=== PATIENT | female | born 1975 | race Caucasian/White ===

== ENCOUNTER 2025-07-26 17:31 | Emergency (ER) | payer OTHER, SELFPAY ==
[2025-07-26 17:36] VITALS: BP 137/82
--- NOTE | 2025-07-26 19:01 | ED.GENMED ---
History of Present Illness
General
Chief Complaint: Abdominal Pain
Source: patient and significant other
Time Seen by Provider: 07/26/25 18:45
History of Present Illness
History of Present Illness:
This patient is a 50-year-old female who just returned from [place] today after being there for 2 weeks. She was feeling her usual self until Monday evening when she said her entire abdomen started to 'bother me'. She cannot be more specific than
that. Since that time, she has multiple episodes of diarrhea and for the first time here in the emergency department noticed a small amount of blood in it. She denies fever, chills, vomiting but has felt nauseous. She denies vaginal discharge or
bleeding, chest pain. She denies sick contacts or recent antibiotics. She notes discomfort initially in the upper abdomen described as 'stabbing' that seemed worse after eating but now has migrated down to the lower abdomen. This is without
exacerbating relieving factors otherwise. She denies urinary symptoms.
Past History
Past History
ED Past Medical History: Psychiatric
ED Past Surgical History: Gynecological
Social History
Tobacco: Non-smoker
Alcohol: Occasional
Drug: None
Living: other
Phy Exam
Physical Exam
Physical Exam:
GENERAL: Alert , in no apparent distress
EYE: pupils equal and reactive
NECK: Supple, no significant adenopathy.
ENT: o/p clr, mm dry
CARDIAC: Regular rate and rhythm .
LUNGS: Clear breath sounds bilaterally, no acute respiratory distress, no wheezes/rales/rhonchi
ABDOMEN: Soft, diffuse abdominal tenderness, no r/g, no cvat
NEUROLOGICAL: Alert and oriented, no focal neuro deficits
SKIN: Warm and dry, skin intact.
MUSCULOSKELETAL: No edema, well perfused.
PSYCH: Normal and appropriate interaction.
Course
Orders/Labs/Results
Orders:
Orders
07/26/25 18:57
Cardiac Monitoring- Treatment ONCE
0.9% Sodium Chloride 1000 ml [Nss] 1,000 ml IV BOLUS
Iohexol [Omnipaque] See Protocol PO NOW STA
07/26/25 18:58
Electrocardiogram (*1) Stat
Reason for Study: Abdominal Pain
CT Abd/pel W Iv And Oral Contr Urgent
Comment:
Reason For Exam: diarrhea, travel, abd pain
EKG- Treatment ONCE
Test Result ONCE
07/26/25 19:25
Complete Blood Count/No Diff Urgent
Comprehensive Metabolic Panel Urgent
HCG, Serum Qualitative Screen Urgent
Lipase Urgent
Urinalysis Reflex To Culture Urgent
Date Specimen was Collected: 07/26/25
Time Specimen was Collected: 19:18
Urine Microscopic Reflex Cult Urgent
C difficile Antigen & Toxins Urgent
REHANA Source: ST
Specimen Description:
Date Specimen was Collected: 07/26/25
Time Specimen was Collected: 19:18
Stool Culture Urgent
REHANA Source: Feces/Stool
Specimen Description:
Date Specimen was Collected: 07/26/25
Time Specimen was Collected: 19:18
07/26/25 23:09
Ketorolac [Toradol] 15 mg IV NOW STA
MetroNIDAZOLE 500 MG/100 ML [Flagyl 500 mg] 100 ml IV NOW
07/26/25 23:18
Add On - Microbiology Routine
Tests Added?: c-diff
07/26/25 23:20
Ciprofloxacin 400 mg/[id number] [Cipro 400 mg] 200 ml IV NOW
07/26/25 23:28
Ciprofloxacin HCl [Cipro] 500 mg PO NOW STA
MetroNIDAZOLE [Flagyl] 500 mg PO NOW STA
Abnormal Lab Results
07/26/25
19:25
WBC 16.3 H 10^3/uL
(4.8-10.8)
RBC 4.14 L 10^6/uL
(4.20-5.40)
MCH 32.1 H pg
(27.0-31.0)
Sodium 132 L mmol/L
(135-145)
Glucose 126 H mg/dl
(70-99)
Urine Ketones 2+ A
(Negative)
Urine Albumin (Reflex) 1+ A
(Neg - Trace)
07/26/25 19:25
07/26/25 19:25
Vital Signs
Initial and Last Documented VS:
Initial Vital Signs
Temp Pulse Resp BP Pulse Ox
97.8 F 110 16 137/82 98
07/26/25 17:36 07/26/25 17:36 07/26/25 17:36 07/26/25 17:36 07/26/25 17:36
Last Documented Vital Signs
Temp Pulse Resp BP Pulse Ox
97.8 F 99 14 134/84 99
07/26/25 17:36 07/26/25 23:29 07/26/25 23:29 07/26/25 23:29 07/26/25 22:20
*Pulse Oximetry
SaO2: 98
Oxygen Mode of Delivery: Room air
Patient hypoxic: no
*Critical Care Note
Total Time (30-74mins, 75-104mins- exclusive of procedures): Not Applicable
Update Note
Update Note:
Patient presents to the Emergency Department with abdominal pain and diarrhea
Number and Complexity of Problems Addressed at the Encounter
� Chronic conditions affecting care:
� Acute Exacerbation and/or Progression of Chronic Illness:
� Differential Diagnosis includes: But not limited to infectious colitis, C. difficile, appendicitis, cholecystitis, etc. etc.
Amount and/or Complexity of Data to be Reviewed and Analyzed
� I performed an independent evaluation of and my interpretation is:
EKG:
CT: Vision read moderate wall thickening of the colon diffusely from cecum to sigmoid colon with pericolonic fat stranding reflecting nonspecific intense pancolitis includes. Small amount of free fluid in the bilateral lower
quadrants of the pelvis no bowel obstruction abscess or free air normal appendix right lower quadrant remainder of the abdominal organs without acute abnormality incidental duplicated left renal collecting system decompressed bladder
Xrays:
Laboratory Studies: Leukocytosis noted
Other:
� Review of other/old records reveals:
� Clinical information was obtained by an independent historian:
� Prescriptions/Medications Considered but not given:
� Further testing considered but not performed:
Risk of Complications and/or Morbidity or Mortality of Patient Management
� Social determinants of health affecting care:
� Discussion with other providers (PCP, Hospitalists, Consultants, etc):
� Escalation of care including admission/observation vs risk of discharge considered: 11:11 PM repeat examination, abdomen soft with diffuse mild to palpation, no rebound or guarding. Patient tolerated oral contrast without
difficulty. Long discussion with patient and significant other regarding stay overnight in hospital under observation versus go home, they prefer to go home but understands very closely importance of follow-up and reasons return the emergency
department.
ED Attending Note
-
Portions of this chart may have been created with voice recognition software.� Occasional wrong word or��sound alike� substitutions may have occurred due to the inherent limitations of voice recognition software.
Discharge Plan
Departure
Patient Disposition: Home (Routine Discharge)
Date of Disposition: 07/26/25
Time of Disposition: 23:29
Patient with high blood pressure during this ER visit?: Yes
Condition: Good
Discharge Problem:
Colitis
Instructions: Colitis (DC), BLOOD PRESSURE
Prescriptions:
New
ciprofloxacin HCl [Cipro] 500 mg tablet
500 mg PO BID Qty: 14 0RF
metronidazole 500 mg tablet
500 mg PO Q8H 7 Days Qty: 21 0RF
No Action
bupropion HCl 150 mg Tablet Sustained-Release 12 Hr
150 mg PO DAILY
Referrals:
Nette Cedillo MD [Active, Gastroenterology] - Next open appointment
Kimber Patterson DO [Family Provider, Family Practice]
Activity Restrictions/Additional Instructions:
IF YOU DEVELOP INCREASING/PERSISTENT/NEW PAIN, FEVER, BLEEDING, VOMITING, DIZZINESS, OR OTHER WORRISOME SIGNS, GO TO THE ER IMMEDIATELY!
Interventions
Interventions:
*Risk Screen - Suicide Last Done: 07/26/25 19:54
*General Assessment Last Done: 07/26/25 19:53
*Neglect/Abuse Screening Last Done: 07/26/25 19:54
*ED- Fall Risk Assessment Last Done: 07/26/25 23:20
*Nursing Disposition Last Done: 07/26/25 23:43
FD-Bemwiz-Zayngudrgc Assessment Last Done: 07/26/25 23:29
Discharge Date and Time
Discharge Date/Time: 07/26/25 23:43
Print Language: [place]
[2025-07-26 19:34] LABS: Hematocrit 38.6 % (37.0-47.0); Hemoglobin 13.3 g/dL (12.0-16.0); Mean Corp Hgb Conc. 34.5 g/dL (33.0-37.0); Mean Corpuscular Volume 93.2 fL (81.0-99.0); Platelet Count 338 10^3/uL (130-400); Red Cell Dist. Width 11.6 % (11.5-14.5)
[2025-07-26] MEDS: OMNIPAQUE 50 ML PO (19:38)
[2025-07-26] MEDS: NSS 1000 IV (19:39)
[2025-07-26 19:46] LABS: HCG, Serum Qualitative Screen Negative
[2025-07-26 19:56] LABS: ALT (SGPT) 13 U/L (0-35); AST (SGOT) 16 U/L (14-36); Albumin 3.7 g/dl (3.5-5.0); Alkaline Phosphatase 95 U/L (38-126); Blood Urea Nitrogen 13 mg/dl (7-17); Calcium 8.8 mg/dl (8.4-10.2); Carbon Dioxide 24 mmol/L (22-30); Chloride 102 mmol/L (98-107); Glucose 126 mg/dl (70-99); Lipase 47 U/L (23-300); Potassium 4.3 mmol/L (3.5-5.1); Sodium 132 mmol/L (135-145); Total Protein 6.5 g/dl (6.3-8.2); eGFR > 60.00
[2025-07-26 22:20] VITALS: BP 120/68
[2025-07-26 22:31] LABS: Urine Character Clear (Clear)
[2025-07-26 22:45] LABS: Urine Squamous Cell >30 /LPF (Few)
[2025-07-26 22:48] LABS: Urine Red Blood Cell 0-2 /HPF (0-2)
[2025-07-26 23:16] VITALS: BMI 24.0
[2025-07-26] MEDS: TORADOL 15 MG IV (23:27)
[2025-07-26 23:29] VITALS: BP 134/84
[2025-07-26] MEDS: FLAGYL 500 MG PO (23:39)
[2025-07-26] MEDS: CIPRO 500 MG PO (23:39)
== END 2025-07-26 23:43 | disposition home or self-care (01) ==
LOC: EMR 17:31
PROVIDERS: EMERGENCY PHYSICIAN Emergency Medicine; FAMILY PHYSICIAN Family Medicine
DX: K52.9 Noninfective gastroenteritis and colitis, unspecified (principal)
CPT/HCPCS: 99284; 96374; 96361; 74177; 80053; 81003; 81015; 83690; 84703; 85027; 87045; 87046; 87324; 87427; 87449; 93005; Q9967

== ENCOUNTER 2025-07-27 23:31 | Inpatient (IN) | payer OTHER, SELFPAY ==
[2025-07-27 21:39] VITALS: BP 135/87
--- NOTE | 2025-07-27 22:22 | ED.GENMED ---
History of Present Illness
General
Chief Complaint: Abdominal Symptoms
Source: patient and significant other
Time Seen by Provider: 07/27/25 22:00
History of Present Illness
History of Present Illness:
This patient is a 50-year-old female who I saw in the emergency department approximately 24 hours ago, at that time complaints of abdominal pain and diarrhea, diagnosed with colitis. At that time, patient elected to go home with outpatient
treatment and close follow-up. She was prescribed Cipro and Flagyl, and began Imodium at home. She states she tolerated the morning antibiotics but has had repeated episodes of nonbloody vomiting since then associated with now passing bright red
blood per rectum. She notes persistent mild to moderate abdominal that gets worse just before she has a bowel movement. Otherwise no exacerbating relieving factors, no radiation, no chest pain, shortness of breath, fever, chills, or other
complaints.
Past History
Past History
ED Past Medical History: Psychiatric
ED Past Surgical History: Gynecological
Social History
Tobacco: Non-smoker
Alcohol: Occasional
Drug: None
Living: other
Phy Exam
Physical Exam
Physical Exam:
GENERAL: Alert , in no apparent distress
EYE: pupils equal and reactive
NECK: Supple, no significant adenopathy.
ENT: o/p clr, mm slightly dry
CARDIAC: Regular rate and rhythm .
LUNGS: Clear breath sounds bilaterally, no acute respiratory distress, no wheezes/rales/rhonchi
ABDOMEN: Soft, diffuse mild tenderness, no r/g, no cvat
NEUROLOGICAL: Alert and oriented, no focal neuro deficits
SKIN: Warm and dry, skin intact.
MUSCULOSKELETAL: No edema, well perfused.
PSYCH: Normal and appropriate interaction.
Course
Orders/Labs/Results
Orders:
Orders
07/27/25 22:20
0.9% Sodium Chloride 1000 ml [Nss] 1,000 ml IV BOLUS
Ciprofloxacin 400 mg/[id number] [Cipro 400 mg] 200 ml IV NOW
MetroNIDAZOLE 500 MG/100 ML [Flagyl 500 mg] 100 ml IV NOW
Morphine Sulfate 4 mg IV NOW STA
Ondansetron Injectable [Zofran] 4 mg IV NOW STA
07/27/25 22:24
Complete Blood Count/No Diff Urgent
Comprehensive Metabolic Panel Urgent
Lactic Acid Urgent
07/27/25 22:33
Vancomycin HCl [Firvanq] 500 mg PO NOW STA
07/27/25 23:23
Admit/Transfer Patient As Directed
Co-Sign Provider:
Level of Care: Inpatient admission
Assign to:: Medical/Surgical
Physician / Group: yung
Diagnosis: cdif
Reason for Hospitalization: cdif
Expected length of stay greater than two midnights?: Yes
ELOS- Estimated Length of Stay in days: 2
I certify the patient meets the requirements for IP care: Yes
Code Status As Directed
Resuscitation Status: Full Code
PRN Pain Medication Management As Directed
May give lesser potent ordered pain med per pt: Yes
preference::
Protocol:: Medication orders for pain may be administered in a
manner that supports deferring to patient preference
when the pt is:
- Requesting an ordered lesser potent pain medication.
Least to most potent pain medications are defined
as: acetaminophen < NSAID < tramadol < opioids
(morphine, oxycodone, hydromorphone).
- Requesting a lesser dose of the same medication IF
ORDERED.
- Requesting a less intrusive route of administration
if both routes are prescribed by the provider (PO <
IV).
Abnormal Lab Results
07/27/25
22:24
WBC 11.9 H 10^3/uL
(4.8-10.8)
RBC 3.92 L 10^6/uL
(4.20-5.40)
Hct 36.7 L %
(37.0-47.0)
MCH 31.9 H pg
(27.0-31.0)
Sodium 131 L mmol/L
(135-145)
Carbon Dioxide 18 L mmol/L
(22-30)
Glucose 105 H mg/dl
(70-99)
Total Protein 6.0 L g/dl
(6.3-8.2)
07/27/25 22:24
07/27/25 22:24
Vital Signs
Initial and Last Documented VS:
Initial Vital Signs
Temp Pulse Resp BP Pulse Ox
97.7 F 95 18 135/87 99
07/27/25 21:39 07/27/25 21:39 07/27/25 21:39 07/27/25 21:39 07/27/25 21:39
Last Documented Vital Signs
Temp Pulse Resp BP Pulse Ox
97.7 F 89 16 120/74 98
07/27/25 21:39 07/27/25 23:42 07/27/25 23:42 07/27/25 23:42 07/27/25 23:42
*Pulse Oximetry
SaO2: 99
Oxygen Mode of Delivery: Room air
Patient hypoxic: no
*Critical Care Note
Total Time (30-74mins, 75-104mins- exclusive of procedures): Not Applicable
Update Note
Update Note:
Patient presents to the Emergency Department with ___abdominal pain, nausea, vomiting, bloody
Number and Complexity of Problems Addressed at the Encounter
� Chronic conditions affecting care:
� Acute Exacerbation and/or Progression of Chronic Illness:
� Differential Diagnosis includes: But not limited to infectious colitis, ischemic colitis, C. difficile, etc. etc.
Amount and/or Complexity of Data to be Reviewed and Analyzed
� I performed an independent evaluation of and my interpretation is:
EKG:
CT:
Xrays:
Laboratory Studies: Generally unchanged, lactic within normal limits.
Other:
� Review of other/old records reveals:
� Clinical information was obtained by an independent historian: Significant other who is at bedside
� Prescriptions/Medications Considered but not given:
� Further testing considered but not performed:
Risk of Complications and/or Morbidity or Mortality of Patient Management
� Social determinants of health affecting care:
� Discussion with other providers (PCP, Hospitalists, Consultants, etc):
� Escalation of care including admission/observation vs risk of discharge considered: I informed both patient and significant other regarding her C. difficile results, revision of treatment, recommendation for hospitalization.
Case discussed with hospitalist. Patient is not critically ill, no hypotension, abdomen without rebound or guarding, etc.
ED Attending Note
-
Portions of this chart may have been created with voice recognition software.� Occasional wrong word or��sound alike� substitutions may have occurred due to the inherent limitations of voice recognition software.
Discharge Plan
Departure
Patient Disposition: Admit
Date of Disposition: 07/27/25
Time of Disposition: 23:10
Presentation/result/management discussed w/ accepting MD/DO: Hospitalist
Discharge Problem:
C. difficile colitis
Interventions
Interventions:
*Risk Screen - Suicide Last Done: 07/27/25 21:39
*General Assessment Last Done: 07/27/25 21:39
*Neglect/Abuse Screening Last Done: 07/27/25 21:39
*ED- Fall Risk Assessment Last Done: 07/27/25 22:28
*ED COVID-19 Vaccine History Last Done: 07/27/25 22:28
*ED Influenza Vaccine History Last Done: 07/27/25 22:28
JU-Utzkmg-Shubzvpqts Assessment Last Done: 07/27/25 22:59
[2025-07-27 22:27] VITALS: BMI 21.1
[2025-07-27] MEDS: NSS 1000 IV (22:27)
[2025-07-27] MEDS: ZOFRAN 4 MG IV (22:30)
[2025-07-27] MEDS: MORPHINE SULFATE 4 MG IV (22:30)
[2025-07-27 22:35] LABS: Hematocrit 36.7 % (37.0-47.0); Hemoglobin 12.5 g/dL (12.0-16.0); Mean Corp Hgb Conc. 34.1 g/dL (33.0-37.0); Mean Corpuscular Volume 93.6 fL (81.0-99.0); Platelet Count 316 10^3/uL (130-400); Red Cell Dist. Width 11.5 % (11.5-14.5)
[2025-07-27 22:57] LABS: ALT (SGPT) 12 U/L (0-35); AST (SGOT) 16 U/L (14-36); Albumin 3.5 g/dl (3.5-5.0); Alkaline Phosphatase 77 U/L (38-126); Blood Urea Nitrogen 7 mg/dl (7-17); Calcium 8.7 mg/dl (8.4-10.2); Carbon Dioxide 18 mmol/L (22-30); Chloride 103 mmol/L (98-107); Estimated Creatinine Clearance 65 ml/min; Glucose 105 mg/dl (70-99); Potassium 4.2 mmol/L (3.5-5.1); Sodium 131 mmol/L (135-145); Total Protein 6.0 g/dl (6.3-8.2); eGFR > 60.00
--- NOTE | 2025-07-27 23:17 | HPS.HSE ---
Family Physician
-
Family Physician: Kimber Patterson, DO
Chief Complaint
-
watery bloody diarrhea x 1week
History of Present Illness
50-year-old female who had recent trip to [place] while they are 1 week into her trip she started with watery diarrhea.
She came to the ER yesterday complaining of abdominal pain with diarrhea. she had CT showing colitis at that time patient elected to go home she was prescribed Cipro and Flagyl and began Imodium at home. She reports she had vomiting and had
bright red blood per rectum her stool culture overnight was positive for C. difficile. She denies fever, chills, chest pain, palpitations, shortness of breath, cough, urinary symptoms. She denies any recent antibiotics, colitis, Crohn's, IBS, sick
contacts. She has past medical history of depression
Medical History
Past Medical History
Past Medical History: Reports Other (Depression)
Past Surgical History: Reports Other (Tubal ligation)
Social History
Tobacco: Non-smoker
Alcohol: Occasional
Personal:
Living: With Family ()
Employment: Employed
Family History
Family History: Other (No family history of Crohn's, C. difficile, IBS)
Allergies / Home Medications
Allergies reflects when Allergies were last updated in [employer].
Home Medications with original date entered in [employer]
Allergy/Medication List:
Allergies
Allergy/AdvReac Type Severity Reaction Status Date / Time
No Known Allergies Allergy Verified 07/26/25 17:38
Home Medications
bupropion HCl 150 mg tablet,12 hr sustained-release 150 mg PO DAILY 07/26/25
ciprofloxacin HCl 500 mg tablet (Cipro) 500 mg PO BID #14 tabs 07/26/25
metronidazole 500 mg tablet 500 mg PO Q8H 7 days #21 tabs 07/26/25
Review of Systems
-
History Source: Patient and Family ( at bedside)
A 12 point ROS was completed and negative except as noted: Yes
Constitutional: Denies Fever or Chills
EENT: Denies Sore Throat
Respiratory: Denies Cough or Trouble Breathing
Cardiac: Denies Chest Pain, Diaphoresis or Palpitations
Abdomen/GI: Reports Abdominal Pain (Generalized), Nausea, Vomiting, Diarrhea (Watery, and bloody) and Bloody Stools
: Denies Dysuria, Frequency, Flank Pain, Incontinence or Dark Urine
Musculoskeletal: Denies Joint Pain or Muscle Pain
Skin: Denies Itching or Rash
Neurological: Denies Dizzy, Headache or Weakness
Endocrine: Reports No Symptoms
Hematologic/Lymphatic: Reports No Symptoms
Psych: Reports Calm
Physical Exam
Vital Signs
Vital Signs
Temp Pulse Resp BP Pulse Ox
97.7 F 95 18 135/87 99
07/27/25 21:39 07/27/25 21:39 07/27/25 21:39 07/27/25 21:39 07/27/25 22:26
Physical Exam
General: Conversant; No Fever or Chills
HEENT: NormoCephalic, Anicteric, Moist mucous membranes, PERRLA, [place] Conjunctivae and No Ptosis
Respiratory: Clear; No Wheezes, Rales or Rhonchi
Cardiac: S1/S2 and Regular Rhythm; No Murmur, Rub, Gallop or Peripheral Edema
Breast: Deferred by me
GI: Soft, Non Distended, Normal Bowel Sounds, Tender (generalized) and No Hepatosplenomegaly
Genito-urinary: Deferred by me
Musculoskeletal: No Clubbing, No Cyanosis and No Edema
Skin: Warm and Dry; No Rash or Jaundice
Neuro: AO x 3, No Motor Deficits, Nonfocal/grossly intact, Cranial Nerves Intact and No Sensory Deficits; No Slurred Speech, Facial Droop, Tremors or Sedated
Psych: Calm
Laboratory Results
-
07/27/25 22:24
07/27/25 22:24
Laboratory Results
Lactic Acid 0.8 mmol/L (0.7-2.0) 07/27/25 22:24
Total Bilirubin 0.7 mg/dl (0.2-1.3) 07/27/25 22:24
AST 16 U/L (14-36) 07/27/25 22:24
ALT 12 U/L (0-35) 07/27/25 22:24
Alkaline Phosphatase 77 U/L (38-126) 07/27/25 22:24
Data Reviewed
-
CT Scan: Report Reviewed by me
Lab Data: Labs Reviewed by me
Impression/Plan
-
Impression/plan:
Admit to [facility]
#C. difficile colitis
WBC 11.9, afebrile 97.7
Stool culture 07/26/2025 C. difficile positive
Patient started on vancomycin 500 mg p.o. in ER
Continue oral vancomycin 125 every 6 hours
- N.p.o.
- IV NSS
- IV Zofran
- Follow CBC, CMP
CT abdomen pelvis IV and oral contrast 07/26/2025
Nonspecific advanced pancolitis with relative sparing of the distal sigmoid colon and rectum. This may be infectious or
inflammatory in nature. No evidence of pneumatosis. No free air. Trace free fluid in the pelvis. No focal collection or abscess.
No bowel obstruction.
#Depression
Continue Wellbutrin
DVT prophylaxis
SCDs
Full code
--- NOTE | 2025-07-27 23:32 | W.PN.UPDATE ---
Update Note
Progress Note Update
This is an addendum to the H&P written by Beti Treadwell on 07/27/2025. �Patient seen and examined independently with DRAPERY AND UPHOLSTERY ESTIMATOR.
50-year-old female past medical history of depression presenting with abdominal pain and diarrhea. �She came to the emergency room yesterday after recent trip to [place] with diarrhea with small amount of blood in it for 1 week. �No fevers or chills.
�Nausea without vomiting. �No sick contacts. �She was discharged on ciprofloxacin and Flagyl.
She came back to the emergency room today for persistent nonbloody vomiting now passing bright red blood per rectum. �Stool culture from yesterday shows toxigenic C. difficile positive.
Vital signs normal.
Labs show leukocytosis. �Sodium of 131. �Bicarb of 18. �CT abdomen pelvis from yesterday shows nonspecific advanced pancolitis with relative sparing of the distal sigmoid colon and rectum.
Patient with C. difficile colitis. �N.p.o., IV fluids, p.o. vancomycin. Stool culture still pending.
[2025-07-27] MEDS: FLAGYL 500 MG 100 IV (23:39)
[2025-07-27 23:42] VITALS: BP 120/74
[2025-07-27] MEDS: FIRVANQ 500 MG PO (23:57)
[2025-07-28 01:29] VITALS: BP 108/67
[2025-07-28 01:47] VITALS: BP 113/71; BMI 20.3
[2025-07-28] MEDS: DILAUDID 0.5 MG IV ×3 (02:02→12:49)
[2025-07-28] MEDS: FIRVANQ 125 MG PO ×5 (02:03→23:32)
[2025-07-28] MEDS: NSS 1000 IV (02:04)
--- NOTE | 2025-07-28 03:07 | PTCARENOTE ---
Pt arrived to unit from ED on stretcher at 0132. Pt ambulated to bed without assist; gait steady. Pt complains of abd pain that was aggravated with ambulation-See DEC. IVF started. Pt reports no BM since being in hospital. Q6 Firvanq given-See MAR.
Pt made aware on plan of care and is agreeable to it at this time. Bed in lowest position and locked, call monae within reach, pt states no further needs at this time.
[2025-07-28 07:25] VITALS: BP 115/72
[2025-07-28] MEDS: WELLBUTRIN SR (12 hour sustained release) 150 MG PO (08:07)
[2025-07-28] MEDS: ZOFRAN 4 MG IV (08:11)
[2025-07-28 08:32] LABS: Hematocrit 36.6 % (37.0-47.0); Hemoglobin 12.3 g/dL (12.0-16.0); Mean Corp Hgb Conc. 33.6 g/dL (33.0-37.0); Mean Corpuscular Volume 97.1 fL (81.0-99.0); Nucleated Red Blood Cells % 0 %; Platelet Count 352 10^3/uL (130-400); Red Cell Dist. Width 11.4 % (11.5-14.5)
[2025-07-28 08:38] LABS: ALT (SGPT) < 10 U/L (0-35); AST (SGOT) 16 U/L (14-36); Albumin 2.9 g/dl (3.5-5.0); Alkaline Phosphatase 61 U/L (38-126); Blood Urea Nitrogen 5 mg/dl (7-17); Calcium 8.0 mg/dl (8.4-10.2); Carbon Dioxide 15 mmol/L (22-30); Chloride 109 mmol/L (98-107); Estimated Creatinine Clearance 74 ml/min; Glucose 62 mg/dl (70-99); Potassium 4.5 mmol/L (3.5-5.1); Sodium 132 mmol/L (135-145); Total Protein 5.1 g/dl (6.3-8.2); eGFR > 60.00
[2025-07-28] MEDS: D5/0.9% SODIUM CHLORIDE 1000 IV (11:16)
--- NOTE | 2025-07-28 11:29 | CM ---
Reviewed the chart notes and spoke with the patient and her significant other at the bedside. The patient resides with her significant other in a two story home with three steps to enter. The patient reports no DME/VN/SNF in the past. The patient
confirmed her pharmacy of choice is [facility]. CM continues to be available to patient/family and is monitoring medical plan for needs at discharge.
Plan: Discharge to home when medically stable. No needs anticipated at this time.
[2025-07-28] MEDS: D5/0.45%NACL 1000 IV (12:48)
--- NOTE | 2025-07-28 12:59 | W.PN.UPDATE ---
Update Note
Progress Note Update
Sepsis secondary to C. difficile colitis
Oral antibiotics with vancomycin
C. difficile colitis without evidence of fulminant C. difficile
Currently n.p.o.
Will start clear liquid diet
IV fluids
Antiemetics
P.o. vancomycin 125 mg every 6 x 10 days
Maintain Iso precautions
Hyponatremia
Encourage p.o. intake
Metabolic acidosis�none anion gap
Likely secondary to diarrhea and likely hyperchloremia from NS bolus
Expect to improve
Encourage p.o. Intake
I saw and evaluated the patient and reviewed notes.��
I agree with the history, physical exam and medical decision making with the following additions/exceptions/observations
--- NOTE | 2025-07-28 13:05 | CON.GI ---
Addendum entered and electronically signed by Nette Cedillo MD 07/28/25 15:06:
The patient was seen and examined by me independently in collaboration with the nurse practitioner.
Past medical history/social history/medications/allergies/family history reviewed.
Lab data and imaging data reviewed.
50-year-old female no significant past medical history presenting with diarrhea followed by abdominal pain followed by rectal bleeding with nausea and vomiting, no fevers or chills found to have C. difficile and E. coli with positive Shiga toxin.
CT with pancolitis sparing sigmoid and rectum. Labs significant for white blood cell count 13.2 yesterday down to 10.9, hemoglobin 11.3, albumin 2.9. Having ongoing abdominal pain. Will get obstructive series to ensure no megacolon with ongoing
pain. Some improvement from diarrhea previously having 'innumerable' stools yesterday, 5 today. Since some improvement will continue vanco but will also get ID input. Also + shiga toxin E. coli recommendation typically to avoid abx risk of HUS.
Original Note:
Consultation
-
Date/Time Consultation Requested: 07/28/25 1250
Date/Time Consultation Performed: 07/28/25 1305
Requesting Provider: Camila Pate MD
Performing Provider: LEONARDO Kinney, Lashawn Cedillo MD
Reason for Consultation: abdominal pain, bleeding, C-diff and Ecoli positive
Medical History
Chief Complaint / HPI
Chief Complaint: abdominal pain with bleeding
History of Present Illness:
Pt is a 50yo with hx tubal ligation and depression with recent trip to [place] for 2 weeks. She states she began with diarrhea in middle of trip. She considered going to urgent care in [place] but held and returned 07/26 from trip. On return pain
increased and she began with rectal bleeding. She was in ER 07/26 and discharged then returned 07/27 with worsening pain. Since admission pain with some improvement with pain meds but still passing blood stools. Ct completed first visit with
advanced pancolitis with sparing of distal sigmoid and rectum.
Pt denies any GI issue prior to trip. No prior EGD or colonoscopy in past and no chronic GI issues. She current admits to continued diarrhea with about 4 stools today that were all blood. She admits to 6/10 abdominal pain with prior pain
08/01 last 2 days. She also admits to nausea, decreased appetite and bloating. She denies dysphagia, GERD, vomiting, or constipation.
Past Medical History
Past Medical History: Psychiatric (depression)
Past Surgical History: Gynecological (tubal ligation)
Social History
Tobacco: Non-Smoker
Alcohol: Occasional
Drug: None
Personal: Other (boyfriend )
Living: Other (boyfriend )
Employment: Employed
Family History
Family History: Reviewed & Not Pertinent
Allergies / Home Medications
Allergy/AdvReac Type Severity Reaction Status Date / Time
No Known Allergies Allergy Verified 07/26/25 17:38
�Medication �Instructions �Recorded
bupropion HCl 150 mg tablet,12 hr 150 mg PO DAILY 07/26/25
sustained-release
ciprofloxacin HCl 500 mg tablet 500 mg PO BID #14 tabs 07/26/25
(Cipro)
metronidazole 500 mg tablet 500 mg PO Q8H 7 days #21 tabs 07/26/25
Review of Systems
-
History Source: Patient
Constitutional: Reports No Symptoms
EENT: Reports No Symptoms
Respiratory: Reports No Symptoms
Abdomen/GI: Reports Abdominal Pain, Nausea, Diarrhea and Bloody Stools
: Reports No Symptoms
Musculoskeletal: Reports No Symptoms
Skin: Reports No Symptoms
Neurological: Reports No Symptoms
Endocrine: Reports No Symptoms
Hematologic/Lymphatic: Reports Bleeding
Vital Signs
Temp Pulse Resp BP Pulse Ox
98.7 F 96 16 115/72 100
07/28/25 07:25 07/28/25 07:25 07/28/25 07:25 07/28/25 07:25 07/28/25 09:48
Physical Exam
Exam
General: Well Developed, Well Nourished and No Apparent Distress
HEENT: Normocephalic
Respiratory: Clear
Cardiac: Regular Rhythm
GI: Soft, Tender (mild diffuse ) and Distended (mild )
Musculoskeletal: No Clubbing and No Cyanosis
Skin: Warm and Dry
Neuro: Awake, Alert and AO x 3
Psych: Calm
Results
WBC 13.2 10^3/uL (4.8-10.8) H 07/28/25 07:52
Hgb 12.3 g/dL (12.0-16.0) 07/28/25 07:52
Hct 36.6 % (37.0-47.0) L 07/28/25 07:52
MCV 97.1 fL (81.0-99.0) 07/28/25 07:52
Plt Count 352 10^3/uL (130-400) 07/28/25 07:52
Absolute Neuts (auto) 11.4 10^3/uL (1.4-6.5) H 07/28/25 07:52
Sodium 132 mmol/L (135-145) L 07/28/25 07:52
Potassium 4.5 mmol/L (3.5-5.1) 07/28/25 07:52
Chloride 109 mmol/L (98-107) H 07/28/25 07:52
Carbon Dioxide 15 mmol/L (22-30) L 07/28/25 07:52
BUN 5 mg/dl (7-17) L 07/28/25 07:52
Creatinine 0.7 mg/dL (0.6-1.0) 07/28/25 07:52
Calcium 8.0 mg/dl (8.4-10.2) L 07/28/25 07:52
Total Bilirubin 0.4 mg/dl (0.2-1.3) 07/28/25 07:52
AST 16 U/L (14-36) 07/28/25 07:52
ALT < 10 U/L (0-35) 07/28/25 07:52
Alkaline Phosphatase 61 U/L (38-126) 07/28/25 07:52
Diagnostic Image Results:
07/26/25 CT Abd/pel W Iv And Oral Contr
Nonspecific advanced pancolitis with relative sparing of the distal sigmoid colon and rectum. This may be infectious or inflammatory in nature. No evidence of pneumatosis. No free air. Trace free fluid in the pelvis. No focal collection or abscess.
No bowel obstruction.
The examination was performed after-hours on an emergency basis, with initial preliminary interpretation provided by [facility].
Prior GI Procedures:
EGD: none
Colonoscopy: none
Assessment / Plan
-
Pt is a 50yo with hx tubal ligation and depression with recent trip to [place] for 2 weeks. She states she began with diarrhea in middle of trip. She considered going to urgent care in [place] but held and returned 07/26 from trip. On return pain
increased and she began with rectal bleeding. She was in ER 07/26 and discharged then returned 07/27 with worsening pain. Since admission pain with some improvement with pain meds but still passing blood stools. Ct completed first visit with
advanced pancolitis with sparing of distal sigmoid and rectum.
-diarrhea with rectal bleeding + ecoli and + c-diff
-CT with pancolitis
-recent travel to [place]
-leukocytosis
-hyponatremia
PLAN:
etiology of pancolitis with concern for concurrent E coli and C-diff
agree with ID evaluation for antibiotic course currently on oral Vanco
CT as noted
monitor clinical exams -if increased pain consider repeat CT
trend labs with close watch of CBC and renal function for HUS
monitor all stools and volume
ok to continue SQ heparin for now
trend hbg
OP follow up with GI after improved to consider eventual colonoscopy
message sent to review with hospitalist and resident team
-
-
Thank you for consultation and allowing me to participate in the patient's care. Please call the extension [facility] GI physician during the after hours with any questions or concerns.
--- NOTE | 2025-07-28 13:34 | W.PN.HOSP.TC ---
Today's Communication/Plan
-
started on IV fluids DS 5% and 0.45% NS
started clear liquids today
ID consult
GI consult
updated the Dilaudid to 0.5mg Q4HR to Q3H
discontinue Zofran and start Compazine for nausea
repeat CMP and CBC today PM
Assessment / Plan
Assessment / Plan
Pt is a 50yo with hx tubal ligation and depression with recent trip to [place] for 2 weeks. She states she began with diarrhea in middle of trip. She considered going to urgent care in [place] but held and returned 07/26 from trip. On return pain
increased and she began with rectal bleeding. She was in ER 07/26 and discharged then returned 07/27 with worsening pain. Since admission pain with some improvement with pain meds but still passing blood stools. Ct completed first visit with
advanced pancolitis with sparing of distal sigmoid and rectum.
#Sepsis secondary to C. difficile colitis and Shiga toxin E. Coli
- Bloody stool
- IV fluids
- Vancomycin PO 125 mg every 6 x 10 days
- Ct with pancolitis sparing of distal sigmoid and rectum.
- Antiemetics
- Started clear liquids diet
- Maintain Iso precautions
- ID and GI consulted (if symptoms worse planned to repeat CT scan)
- Monitor closely KFT for HUS
- repeat CMP and CBC today PM
- monitor all stools and volume
- OP follow up with GI after improved to consider eventual colonoscopy
#Abdominal pain
- likely due to C. Diff , E. Coli pancolitis
- Pain meds
#Metabolic acidosis
- Likely secondary to diarrhea and NS bolus (hyperchloremic)
- none anion gap
- repeated cmp today PM
- will start IV Dextro 5# and 1/2 NS
#Hyponatremia
- likely secondary to dehydration from diarrhea and poor oral intake
- started on clear liquid today
- will started IV Dextro 5# and 1/2 NS
#leukocytosis
secondary to C. diff and E.coli telegenic shiga toxin
DVT-- SC Heparin
Code -- Full status
Anticipated Discharge: > 48 hours
Subjective/Interval History
-
Date of Service: July 28, 2025
Patient has sever abdominal pain with pure GI bleeding per rectum (ketchup like color stool) and nausea . denied chest pain , SOB, fever, chills. She denies dysphagia, GERD, vomiting, or constipation.
Objective Data
-
Labs:
Laboratory Results
07/28/25 07/28/25 07/28/25
07:52 13:25 13:26
WBC 13.2 H Pending
Hgb 12.3 Pending
Hct 36.6 L Pending
Plt Count 352 Pending
Sodium 132 L Pending
Potassium 4.5 Pending
Chloride 109 H Pending
Carbon Dioxide 15 L Pending
BUN 5 L Pending
Creatinine 0.7 Pending
Glucose 62 L Pending
Calcium 8.0 L Pending
Total Bilirubin 0.4 Pending
AST 16 Pending
ALT < 10 Pending
Alkaline Phosphatase 61 Pending
Vital Signs:
Vital Signs
Temp Pulse Resp BP Pulse Ox
98.7 F 96 16 115/72 100
07/28/25 07:25 07/28/25 07:25 07/28/25 07:25 07/28/25 07:25 07/28/25 09:48
I&O
07/27/25 07/28/25 07/29/25
06:59 06:59 06:59
Intake Total 312 / 312
Balance 312 / 312
Review of Systems
-
History Source: Patient
Constitutional: Reports No Appetite and Weakness
Respiratory: Reports No Symptoms
Cardiac: Reports No Symptoms
Abdomen/GI: Reports Abdominal Pain, Nausea and Bloated
Genitourinary: Reports No Symptoms
Musculoskeletal: Reports No Symptoms
Skin: Reports No Symptoms
Neuro: Reports No Symptoms
Physical Exam
-
General: Other (tired)
HEENT: Normocephalic and Atraumatic
Respiratory: Clear to Auscultation
Cardiac: Regular Rhythm and S1/S2
GI: Tender and Distended
Rectal: Red
Genito-urinary: Clear Urine
Musculoskeletal: No Clubbing, No Cyanosis and No Edema
Skin: Warm and Dry
Neuro: Awake, Alert and Oriented
[2025-07-28] MEDS: COMPAZINE 5 MG IV (13:45)
[2025-07-28 14:40] LABS: Hematocrit 34.0 % (37.0-47.0); Hemoglobin 11.3 g/dL (12.0-16.0); Mean Corp Hgb Conc. 33.2 g/dL (33.0-37.0); Mean Corpuscular Volume 94.2 fL (81.0-99.0); Nucleated Red Blood Cells % 0 %; Platelet Count 313 10^3/uL (130-400); Red Cell Dist. Width 11.4 % (11.5-14.5)
[2025-07-28 15:15] VITALS: BP 129/75
[2025-07-28 15:29] LABS: ALT (SGPT) < 10 U/L (0-35); AST (SGOT) 14 U/L (14-36); Albumin 2.6 g/dl (3.5-5.0); Alkaline Phosphatase 64 U/L (38-126); Blood Urea Nitrogen 4 mg/dl (7-17); Calcium 7.5 mg/dl (8.4-10.2); Carbon Dioxide 18 mmol/L (22-30); Chloride 106 mmol/L (98-107); Estimated Creatinine Clearance 74 ml/min; Glucose 131 mg/dl (70-99); Potassium 4.4 mmol/L (3.5-5.1); Sodium 129 mmol/L (135-145); Total Protein 4.8 g/dl (6.3-8.2); eGFR > 60.00
--- NOTE | 2025-07-28 16:23 | W.PN.UPDATE ---
Update Note
Progress Note Update
I reviewed Xray
Bowel looks dilated
Recommend STOP narcotics risk of megacolon
recommend non narcotic non nsaid control of pain
sent msg to hospitalist team
will repeat xray tomorrow
[2025-07-28 23:18] VITALS: BP 130/77
[2025-07-29] MEDS: D5/0.45%NACL 1000 IV (01:16)
[2025-07-29] MEDS: FIRVANQ 125 MG PO ×2 (05:06→11:12)
[2025-07-29 06:37] LABS: Hematocrit 33.9 % (37.0-47.0); Hemoglobin 11.7 g/dL (12.0-16.0); Mean Corp Hgb Conc. 34.5 g/dL (33.0-37.0); Mean Corpuscular Volume 93.9 fL (81.0-99.0); Nucleated Red Blood Cells % 0 %; Platelet Count 330 10^3/uL (130-400); Red Cell Dist. Width 11.5 % (11.5-14.5)
[2025-07-29 06:53] LABS: ALT (SGPT) < 10 U/L (0-35); AST (SGOT) 13 U/L (14-36); Albumin 2.5 g/dl (3.5-5.0); Alkaline Phosphatase 66 U/L (38-126); Blood Urea Nitrogen < 2 mg/dl (7-17); Calcium 7.8 mg/dl (8.4-10.2); Carbon Dioxide 24 mmol/L (22-30); Chloride 107 mmol/L (98-107); Estimated Creatinine Clearance 74 ml/min; Glucose 134 mg/dl (70-99); Potassium 4.0 mmol/L (3.5-5.1); Sodium 133 mmol/L (135-145); Total Protein 4.7 g/dl (6.3-8.2); eGFR > 60.00
[2025-07-29 07:00] VITALS: BP 124/78
[2025-07-29] MEDS: WELLBUTRIN SR (12 hour sustained release) 150 MG PO (08:20)
--- NOTE | 2025-07-29 09:04 | CON.ID ---
Consultation
-
Date/Time Consultation Requested: July 28, 2025 1249
Date/Time Consultation Performed: July 29, 2025 0900
Requesting Provider: Dr. Camila Pate
Performing Provider: Dr. Fouzia Iyer
Reason for Consultation: C. difficile with GI bleeding and severe abdominal pain
Chief Complaint / Past History
Chief Complaint
Bloody diarrhea, abd pain
History of Present Illness
50-year-old female without significant past medical history who returned to the ER on May 27 due to severe abdominal pain, bloody diarrhea, nausea and vomiting. She and her boyfriend recently traveled to [place] for 2 weeks. A week into the
vacation, she started having watery diarrhea without fevers. She took 1 dose of Imodium without improvement. Her abdominal pain became severe for which she went to an urgent care in [place] July 23. No one spoke [place] in the urgent care.
Patient therefore preferred to wait until she comes back to the [place] to seek treatment. She flew back July 26 without incident. By then she noted bloody diarrhea after she landed. She presented to the ER the same day. CT of the abdomen pelvis
showed advanced pancolitis. White count 16.3. No fever. Stool sent for C. difficile and culture. She received ciprofloxacin and metronidazole in the ER and discharged with prescription for the same. She took the antibiotics but develop nausea
and vomiting. She continued to have severe abdominal pain and bloody diarrhea. She presented back to the ER on May 27. Her white count has improved to 11.9. The October for stool was positive for C. difficile. She was started on oral
vancomycin. Subsequently, the stool culture came back positive for Shiga toxin producing E. coli. She remains on oral vancomycin. Today she reports significant improvement. The stool is no longer bloody. Diarrhea resolving. Abdominal pain also
resolving without need for narcotic. No prior history of antibiotic use. Her boyfriend is well without symptoms.
Past History
Additional Past Medical History:
Depression
Additional Past Surgical History:
Tubal ligation
Allergy History:
No Known Allergies Allergy (Verified 07/26/25 17:38)
Medications Reviewed: Yes
Current Antibiotics:
Vancomycin 125 mg po q6h
Social History
Tobacco: Non-Smoker
Alcohol: Occasional
Drug: None
Personal: Partner (Boyfriend)
Living: Other (boyfriend)
Family History
Family History: Not Pertinent
Review of Systems
Review of Systems
General: Change in Appetite; Negative Fever
HEENT: Negative Sinus Problems or Headache
Cardiovascular: Negative Chest Pain or Dyspnea
Respiratory: Negative Dyspnea or Cough
Genital / Urological: Negative Dysuria or Flank Pain
Endocrine: Weakness
Neurological: Negative Dizziness
All systems: All other systems were reviewed and were negative
Vital Signs
Temp Pulse Resp BP Pulse Ox
98.2 F 95 20 124/78 98
07/29/25 07:00 07/29/25 07:00 07/29/25 07:00 07/29/25 07:00 07/29/25 07:00
Physical Exam
Physical Exam
Constitutional: No Acute Distress and Comfortable
Eyes: No Conjunctival Hemorrhage and Sclera Anicteric
Cardiovascular: Regular Rate and S1/S2
Pulmonary: Clear
Gastrointestinal: Soft, Non Tender and Non Distended
Genito-Urinary: Negative CVA Tenderness
Extremities: Negative Edema
Neurological: AO x 3
Lab / Diagnostic Study Results
07/29/25 05:45
07/29/25 05:45
Abs Immat Gran (auto) 0.1 10^3/uL (0-0.05) H 07/29/25 05:45
Absolute Neuts (auto) 6.8 10^3/uL (1.4-6.5) H 07/29/25 05:45
Absolute Lymphs (auto) 0.6 10^3/uL (1.2-3.4) L 07/29/25 05:45
Absolute Monos (auto) 0.7 10^3/uL (0.1-0.6) H 07/29/25 05:45
Absolute Basos (auto) 0.1 10^3/uL (0-0.2) 07/29/25 05:45
Immature Gran % 0.6 % (0-0.5) H 07/29/25 05:45
Neutrophils % 80.3 % (42.2-75.2) H 07/29/25 05:45
Lymphocytes % 7.6 % (20.5-51.1) L 07/29/25 05:45
Monocytes % 8.4 % (1.7-9.3) 07/29/25 05:45
Eosinophils % 2.5 % (0-6) 07/29/25 05:45
Basophils % 0.6 % (0-2) 07/29/25 05:45
Lactic Acid 0.8 mmol/L (0.7-2.0) 07/27/25 22:24
Microbiology Results
07/26/25 CT a/p: Nonspecific advanced pancolitis with relative sparing of the distal sigmoid colon and rectum. This may be infectious or inflammatory in nature. No evidence of pneumatosis. No free air. Trace free fluid in the pelvis. No focal
collection or abscess. No bowel obstruction.
07/28/25 CXR/AXR: No acute disease of the chest. No evidence of intestinal obstruction.
Assessment / Plan
# STEC gastroenteritis
# Return traveller from [place]
# Leukocytosis resolved
- bloody diarrhea and abdominal pain resolving
- Tx is supportive care.
- Avoid systemic abx which can trigger HUS.
# C. difficile +
- No previous abx exposure
- Suspect colonization over active infection
- Can complete 10days of empiric Vancomycin 125mg po q6.
--- NOTE | 2025-07-29 11:00 | CM ---
Reviewed the chart notes. CM continues to be available to patient/family and is monitoring medical plan for needs at discharge.
Plan: Discharge to home when medically stable. No needs anticipated at this time.
--- NOTE | 2025-07-29 12:02 | W.PN.GI.CBS2 ---
Today's Communication / Plan
-
vanco 10 days
outpatient colonoscopy
will have our office call her for f/u
will sign off call with questions
Assessment / Plan
-
Pt is a 50yo with hx tubal ligation and depression with recent trip to [place] for 2 weeks.
-diarrhea with rectal bleeding + ecoli and + c-diff
-CT with pancolitis
-recent travel to [place]
-leukocytosis
-hyponatremia
PLAN:
start lactose free diet
continue vanco for 10 days (ID also has seen pt)
needs eventual outpatient colonoscopy electively
Subjective
Subjective
Date of Service: July 29, 2025
Pt feeling much better, no abd pain
Objective
Data Reviewed
Laboratory Data:
Laboratory Results
07/29/25 05:45
07/29/25 05:45
Laboratory Results
Total Bilirubin 0.3 mg/dl (0.2-1.3) 07/29/25 05:45
AST 13 U/L (14-36) L 07/29/25 05:45
ALT < 10 U/L (0-35) 07/29/25 05:45
Alkaline Phosphatase 66 U/L (38-126) 07/29/25 05:45
Vital Signs and I&O:
Vital Signs
Temp Pulse Resp BP Pulse Ox
98.2 F 95 20 124/78 98
07/29/25 07:00 07/29/25 07:00 07/29/25 07:00 07/29/25 07:00 07/29/25 09:23
I&O
07/28/25 07/29/25 07/30/25
06:59 06:59 06:59
Intake Total 312 / 312 2603 / 2603
Output Total 50 / 50
Balance 312 / 312 2553 / 2553
Physical Exam
Physical Exam
GI: Soft, Non Distended and Non Tender
--- NOTE | 2025-07-29 12:46 | W.PN.UPDATE ---
Update Note
Progress Note Update
Sepsis secondary to C. difficile colitis
Oral antibiotics with vancomycin
C. difficile colitis without evidence of fulminant C. difficile
Currently n.p.o.
Will start clear liquid diet
IV fluids
Antiemetics
P.o. vancomycin 125 mg every 6 x 10 days
Maintain Iso precautions
ETEC
No systemic atb. can cause HUS
Bloody bm and abd pain resolved
Normocytic anemia
Likely related to acute infection with CDiff and EColi Shiga toxin
Noted to have bloody BM, now resolved
Did not require PRBC
GI rec outpatient C-scope
Hyponatremia
Encourage p.o. intake
Metabolic acidosis�none anion gap
Likely secondary to diarrhea and likely hyperchloremia from NS bolus
Expect to improve
Encourage p.o. Intake
Wants to go home. Will advance diet. If able to tolerate DC home
I saw and evaluated the patient and reviewed notes.��
I agree with the history, physical exam and medical decision making with the following additions/exceptions/observations
[2025-07-29 15:00] VITALS: BP 134/83
--- NOTE | 2025-07-29 15:17 | W.PN.HOSP.TC ---
Addendum entered and electronically signed by Jorge Cr MD 07/30/25 17:16:
See update note
Read, reviewed, and agree. See same day progress note for additional details. Time spent reviewing records in EMR, med rec, consults, notes, d/w consultants, nursing, family, and CM
Original Note:
Today's Communication/Plan
-
Abdominal X-ray - no bowel obstruction or acute abnormalities
Started on low residue diet and tolerating
discontinued IV fluids
dishcarged today in stable condition
Assessment / Plan
Assessment / Plan
Pt is a 50yo with hx tubal ligation and depression with recent trip to [place] for 2 weeks. She states she began with diarrhea in middle of trip. She considered going to urgent care in [place] but held and returned 07/26 from trip. On return pain
increased and she began with rectal bleeding. She was in ER 07/26 and discharged then returned 07/27 with worsening pain. Since admission pain with some improvement with pain meds but still passing blood stools. Ct completed first visit with
advanced pancolitis with sparing of distal sigmoid and rectum.
#Sepsis secondary to C. difficile colitis and Shiga toxin E. Coli
- Bloody stool
- IV fluids
- Vancomycin PO 125 mg every 6 x 10 days
- Ct with pancolitis sparing of distal sigmoid and rectum.
- Antiemetics
- Started clear liquids diet
- Maintain Iso precautions
- ID and GI consulted (if symptoms worse planned to repeat CT scan)
- Monitor closely KFT for HUS
- repeat CMP and CBC today PM
- monitor all stools and volume
- OP follow up with GI after improved to consider eventual colonoscopy
#Abdominal pain
- likely due to C. Diff , E. Coli pancolitis
- Pain meds
#Metabolic acidosis
- Likely secondary to diarrhea and NS bolus (hyperchloremic)
- none anion gap
- repeated cmp today PM
- will start IV Dextro 5# and 1/2 NS
#Hyponatremia
- likely secondary to dehydration from diarrhea and poor oral intake
- started on low residue diet and tolerating
- discontinued IV Dextro 5# and 1/2 NS
#leukocytosis
improved
secondary to C. diff and E.coli telegenic shiga toxin
DVT-- SC Heparin
Code -- Full status
Anticipated Discharge: Today
Subjective/Interval History
-
Date of Service: July 29, 2025
Patient symptoms improving today , no abd pain , no nausea, had bowel movement with no blooding. no fever, no chills, no vomiting .
Objective Data
-
Labs:
Laboratory Results
07/29/25
05:45
WBC 8.5
Hgb 11.7 L
Hct 33.9 L
Plt Count 330
Sodium 133 L
Potassium 4.0
Chloride 107
Carbon Dioxide 24
BUN < 2 L
Creatinine 0.7
Glucose 134 H
Calcium 7.8 L
Total Bilirubin 0.3
AST 13 L
ALT < 10
Alkaline Phosphatase 66
Vital Signs:
Vital Signs
Temp Pulse Resp BP Pulse Ox
98.2 F 95 20 124/78 98
07/29/25 07:00 07/29/25 07:00 07/29/25 07:00 07/29/25 07:00 07/29/25 09:23
I&O
07/28/25 07/29/25 07/30/25
06:59 06:59 06:59
Intake Total 312 / 312 2603 / 2603
Output Total 50 / 50
Balance 312 / 312 2553 / 2553
Review of Systems
-
History Source: Patient
Respiratory: Reports No Symptoms
Cardiac: Reports No Symptoms
Abdomen/GI: Reports No Symptoms
Genitourinary: Reports No Symptoms
Musculoskeletal: Reports No Symptoms
Neuro: Reports No Symptoms
Physical Exam
-
General: No Apparent Distress and Comfortable
HEENT: Normocephalic and Atraumatic
Respiratory: Clear to Auscultation
Cardiac: Regular Rhythm and S1/S2
GI: Nondistended and Tender
Rectal: Brown
Genito-urinary: Clear Urine
Musculoskeletal: No Clubbing, No Cyanosis and No Edema
Skin: Warm and Dry
Neuro: Awake, Alert and Oriented
--- NOTE | 2025-07-29 16:19 | PTCARENOTE ---
Patient discharged home, transported by significant other. This RN removed patient's IV, vitals taken by tech stable. Patient dressed and gathered belongings in room independently. This RN reviewed discharge instructions and medications with patient
who verbalized understanding, confirmed medication scripts were sent over to preferred pharmacy. Patient refused wheelchair escort and ambulated down to car with significant other.
--- NOTE | 2025-07-30 05:15 | W.DCSUMMARY ---
Discharge Summary
Discharge Data
Date of Admission: 07/27/25
Date of Discharge: 07/29/25
-
Pending Results: No
Additional Pending Results:
Discharging Physician:
Camila Casper
Disposition:
Home
Primary Care Physician:
Kimber Patterson
Principal Discharge Diagnosis:
C.Diff
E.coli Shiga Toxin
Lower GI bleeding
Pancolitis
Chromic Discharge Diagnosis:
Depression
Hospital Course
50-year-old female who had recent trip to [place] while they are 1 week into her trip she started with watery diarrhea.
She came to the ER on 07/26/2025 complaining of abdominal pain with diarrhea. she had CT showing colitis and WBC 16.3 at that time patient elected to go home she was prescribed Cipro and Flagyl and began Imodium at home. She reports she had
vomiting and had bright red blood per rectum and she came back to the ER on 07/27/2025 and her stool culture overnight was positive for C. difficile. She denies fever, chills, chest pain, palpitations, shortness of breath, cough, urinary symptoms.
She denies any recent antibiotics, colitis, Crohn's, IBS, sick contacts. She admitted for C. difficile treatment and started on Vancomycin oral, subsequently, the stool culture came back positive for Shiga toxin producing E. coli. She remains on
oral vancomycin with supportive care for E. Coli and to avoid systemic abx which can trigger HUS. She started on IV fluids and antiemetic with pain medications.
Patient's symptoms started do improved and tolerating the diet without nausea or abd pain and had bowel movement without bloody. Her WBC wnl. Patient discharged in stable condition with Vancomycin oral to complete 10 days total.
she has been advised to follow up with her PCP and gastroenterology as an outpatient for elective colonoscopy.
Important Imaging Findings:
CT Abd/pel W Iv And Oral Contr 07/26/2025
IMPRESSION:
Nonspecific advanced pancolitis with relative sparing of the distal sigmoid colon and rectum. This may be infectious or inflammatory in nature. No evidence of pneumatosis. No free air. Trace free fluid in the pelvis. No focal collection or abscess.
No bowel obstruction.
Chest/ abd x-ray 07/28/2025
IMPRESSION: No acute disease of the chest.
No evidence of intestinal obstruction.
Abdominal X-ray 07/29/2025
IMPRESSION:
Slight decrease in caliber of air-filled loops of large bowel.
Discharge Plan
-
Patient Disposition: Home (Routine Discharge)
Discharge Diagnosis/Procedures: C.Diff
E.coli Shiga Toxin
Lower GI bleeding
Pancolitis
Diet: Other diet
Additional Diets: Lactose free diet
Activity: As tolerated
Driving Restrictions: As prior to admission
Bathing Restrictions: None
Activity Restrictions/Additional Instructions:
Follow up with gastroenterology as an outpatient for possible colonoscopy
Avoid NSAIDs medication for pain.
Instructions: C. difficile infection, Lowering the risk of spreading infection, Isolation precautions, C. difficile infection - ED (DC)
Referrals:
Nette Cedillo MD [Active, Gastroenterology] - in one to two weeks
Referral Note: Please call the office to confirm if the appointment was already scheduled for you.
Kimber Patterson DO [Family Provider, Family Practice] - in less than 1 week
Additional Discharge Medication Instructions: Vancomycin 125 mg capsule PO each 6 hours for C. Difficile colitis infection
Ondansetron 4mg tablet each 8 hours for nausea
Acetaminophen 500 mg tablet each 8 hours for pain as needed
Prescriptions:
New
ondansetron 4 mg tablet,disintegrating
4 mg PO Q8H PRN (Reason: nausea and vomiting) 3 Days Qty: 9 0RF
acetaminophen 500 mg tablet
500 mg PO Q8HPRN PRN (Reason: Pain) 5 Days Qty: 15 0RF
vancomycin 125 mg capsule
125 mg PO QID 8 Days Qty: 34 0RF
Continued
bupropion HCl 150 mg Tablet Sustained-Release 12 Hr
150 mg PO DAILY
Discontinued
ciprofloxacin HCl [Cipro] 500 mg tablet
500 mg PO BID Qty: 14 0RF
metronidazole 500 mg tablet
500 mg PO Q8H 7 Days Qty: 21 0RF
Discharge Orders:
Discharge Patient (As Directed); Ordered 07/29/25
Ordered By: Cmaila Pate
Discharge Date and Time
Discharge Date/Time: 07/29/25 16:42
Print Language: BENGALI
== END 2025-07-29 16:42 | disposition home health service (06) | DRG 872 ==
LOC: 2 NORTH 23:31
PROVIDERS: Specialist Research Data Abstracter/Coder; ADMITTING PHYSICIAN Hospitalist; ATTENDING PHYSICIAN Hospitalist; CONSULT PHYSICIAN Internal Medicine Gastroenterology; EMERGENCY PHYSICIAN Emergency Medicine; FAMILY PHYSICIAN Family Medicine; OTHER PHYSICIAN Internal Medicine Infectious Disease
DX: A41.4 Sepsis due to anaerobes (principal); A04.72 Enterocolitis due to Clostridium difficile, not specified as recurrent; E87.20 Acidosis, unspecified; E87.1 Hypo-osmolality and hyponatremia; B96.23 Unspecified Shiga toxin-producing Escherichia coli [E. coli] [STEC] as the cause of diseases classified elsewhere; F32.A Depression, unspecified; Z98.51 Tubal ligation status
CPT/HCPCS: 74019; 74022; 80053; 83605; 85025; 85027; 96361; 96374; 96375; 99285